=== PATIENT | female | born 1950 ===

== ENCOUNTER 2017-08-29 07:49 | Outpatient (CLI) | payer OTHER | END 2017-08-29 07:53 | disposition home or self-care (01) | LOC: MAMO-SONO 07:49 → NUCLEAR 10:00 | DX: Z12.31 Encounter for screening mammogram for malignant neoplasm of breast (principal); Z87.898 Personal history of other specified conditions; N60.11 Diffuse cystic mastopathy of right breast; N60.12 Diffuse cystic mastopathy of left breast ==

== ENCOUNTER 2018-08-31 09:02 | Outpatient (CLI) | payer OTHER | END 2018-08-31 09:05 | disposition home or self-care (01) | LOC: MAMO-SONO 09:02 | DX: Z12.31 Encounter for screening mammogram for malignant neoplasm of breast (principal); Z87.898 Personal history of other specified conditions; N60.11 Diffuse cystic mastopathy of right breast; N60.12 Diffuse cystic mastopathy of left breast ==

== ENCOUNTER → 2019-09-18 | Outpatient (CLI) | payer OTHER | END | disposition home or self-care (01) | LOC: MAMO-SONO 08:45 | DX: Z12.31 Encounter for screening mammogram for malignant neoplasm of breast (principal); Z87.898 Personal history of other specified conditions; N64.89 Other specified disorders of breast ==

== ENCOUNTER 2019-09-20 11:00 | Outpatient (CLI) | payer OTHER | END 2019-09-20 12:00 | disposition home or self-care (01) | LOC: NUCLEAR 11:00 | DX: M81.0 Age-related osteoporosis without current pathological fracture (principal) ==

== ENCOUNTER 2020-09-23 07:37 | Outpatient (CLI) | payer OTHER | END 2020-09-23 08:31 | disposition home or self-care (01) | LOC: MAMO-SONO 07:37 | PROVIDERS: ATTEND General Practice | DX: Z12.31 Encounter for screening mammogram for malignant neoplasm of breast (principal); Z87.898 Personal history of other specified conditions; N64.89 Other specified disorders of breast; E78.2 Mixed hyperlipidemia ==